=== PATIENT | male | born 1975 | race Caucasian/White ===

== ENCOUNTER 2019-01-24 10:06 | Emergency (ER) | payer OTHER ==
[~2019-01-24] VITALS: Ht 180.3 cm; Wt 122.7 kg
[2019-01-24 10:10] VITALS: Ht 180.3 cm; Wt 122.7 kg
[2019-01-24] MEDS ORDERED: [UNRECOGNIZED DRUG - REMARK] (10:11)
[2019-01-24] MEDS ORDERED: COZAAR25 MG (10:11)
[2019-01-24 10:49] LABS: ALBUMIN 4.1 g/dL (3.4-5.0); ALKALINE PHOSPHATASE 54 U/L (46-116); ALT (SGPT) 52 U/L (10-68); BILIRUBIN - TOTAL 0.35 mg/dL (0.2-1.3); CALC OSMOLALITY 279 mosm/kg (275-300); CALCIUM 9.2 mg/dL (8.5-10.1); CARBON DIOXIDE 25.7 mmol/L (21.0-32.0); CHLORIDE - SERUM 104 mmol/L (98-107); CREATININE - SERUM 0.8 mg/dL (0.6-1.3); GLUCOSE 109 mg/dL (74-106); POTASSIUM - SERUM 3.9 mmol/L (3.5-5.1); PROTEIN - SERUM 7.8 g/dL (6.4-8.2); SODIUM 139 mmol/L (136-145); UREA NITROGEN 14 mg/dL (7-18); eGFR NON AFRICAN AMERICAN > 90 mL/min (90-120)
[2019-01-24 10:51] LABS: BASOPHILS 0.3 % (0-2); EOSINOPHILS 2.3 % (0-7); HEMATOCRIT 48.3 % (42.0-54.0); HEMOGLOBIN 17.2 g/dL (13.5-17.5); IMMATURE GRANULOCYTES 0.4 % (0-5); LYMPHOCYTES 33.8 % (15-50); MCHC 35.6 g/dL (31.0-37.0); MCV 87.2 fL (80.0-100.0); MEAN PLATELET VOLUME 8.7 fL (7.4-10.4); MONOCYTES 7.5 % (2-11); NEUTROPHILS 55.7 % (40-80); PLATELET COUNT 242 10x3/uL (130-400); RBC 5.54 10x6/uL (4.20-6.10); WBC 10.2 10x3/uL (4.8-10.8)
[2019-01-24 11:01] LABS: CKMB 1.5 U/L (0.0-3.6); CREATINE KINASE 112 UL (21-232); MAGNESIUM - SERUM 1.9 mg/dL (1.8-2.4); TROPONIN-I < 0.017 ng/mL (0.000-0.060)
[2019-01-24 11:09] LABS: APTT 27.7 SECONDS (22.8-39.4); INR 1.04 (0.85-1.17); PROTIME 13.1 SECONDS (11.6-15.0)
[2019-01-24] MEDS ORDERED: TOPROL XL100 MG PO (12:52)
[2019-01-24 13:19] VITALS: BP 141/86
--- NOTE | 2019-01-26 10:39 | CN ---
PATIENT NAME:STEFANIE JHONSON MEDICAL RECORD: [id number] : 75 LOCATION:ER ADMIT DATE: ACCOUNT: [id number] CONSULTING PHYSICIAN: ANSELMO FLOWER MD REFERRING PHYSICIAN: CODY SAAB MD DATE OF CONSULTATION: 01/24/2019 DIAGNOSES: 1. Hypertension. 2. Chest pain. 3. Headache. 4. Shortness of breath. HISTORY OF PRESENT ILLNESS: Mr. Johnson has been followed by Dr. Johansen for hypertension. He had a normal stress test, but he continues to be markedly hypertensive. His systolic blood pressures in the 180, heart rate in the 100 range. He is on losartan and Procardia for blood pressure. PHYSICAL EXAMINATION: GENERAL APPEARANCE: Well-nourished, well-developed, appears stated age. Level of distress, comfortable. PSYCHIATRIC: Mental status, alert, normal affect. Orientation, oriented to time, place and person. EYES: Lids and conjunctiva, noninjected. No discharge, no pallor. ENT: Lips, teeth, gums, normal dentition. Oropharynx, no cyanosis, no pallor. NECK: Carotid arteries, bilateral normal upstroke, no bruits, no thrills. JUGULAR VEINS: No jugular venous pressure or distention. CERVICAL LYMPH NODES: Nontender, nonenlarged. THYROID: Not enlarged. Nontender. No nodules. LUNGS: Respiratory effort, unlabored. CHEST: Normal curvature. No thoracic deformity. No chest wall tenderness. Percussion, resonant. Auscultation, clear. No wheezes, no rales, no rhonchi. CARDIOVASCULAR: Precordial exam, nondisplaced. No heaves or pericardial thrills. Rate and rhythm, regular. Heart sounds, normal S1, normal S2. No S3, no gallop, no rub. Systolic murmur, not heard. Diastolic murmur, not heard. EXTREMITIES: No cyanosis, no edema. Peripheral pulses, full and equal in all extremities, except as noted. No bruits appreciated. ABDOMEN: Soft, nondistended. Normal aorta. No bruit. Nontender. No masses. Liver, nontender, no hepatomegaly. Spleen, nontender, no splenomegaly. MUSCULOSKELETAL: No joint tenderness. No joint swelling. No erythema. NEUROLOGICAL: Normal gait, normal strength, normal tone. SKIN: Warm and dry. His EKG is with no changes. IMPRESSION: At this time, we will give him a beta clary, Toprol 100 mg a day. Follow up with Dr. Johansen as previously scheduled. TRANSINT:[id number] Voice Confirmation ID: [id number] DOCUMENT ID: [id number] CONSULT REPORT [id number] ALEX,ANSELMO ODELL MD at 1039 CC: [id number] DICTATION DATE: 01/24/19 1244 ACQUISITION LEAD: 01/24/19 1423 DEP ER 01/24/19 [id number] [place] [address]
== END 2019-01-24 13:10 | disposition home or self-care (01) ==
LOC: D.ER 10:06
PROVIDERS: Family Medicine
DX: R07.9 Chest pain, unspecified (principal); I10 Essential (primary) hypertension

== ENCOUNTER 2019-01-31 10:46 | Outpatient (CLI) | payer OTHER ==
[~2019-01-31] VITALS: Ht 180.3 cm; Wt 77.3 kg
--- NOTE | ~2019-01-31 | OP ---
PATIENT NAME: STEFANIE JOHNSON MEDICAL RECORD: [id number] :75 LOCATION:D.CAT ADMISSION DATE: SURGEON: EVENS DENIS MD DATE OF OPERATION: 01/31/2019 PROCEDURES: Left heart catheterization, selective renal arteriogram. CATHETERS: A 5-Maltese sheath, 5/4 left and right Connor, 5/4 pig. The procedure was well tolerated. The patient returned to carey, sheath removed. ExoSeal device placed. FINDINGS: Left ventriculography in 30-degree DOWNING view: Normal wall motion, normal systolic function. CORONARY ANATOMY: LEFT MAIN: Left main is free of disease. LAD: Free of disease in the diagonal system. CIRCUMFLEX: Free of disease in the marginal system. RIGHT CORONARY ARTERY: Dominant artery, gives rise to PDA, free of disease. The catheters were withdrawn below the diaphragm. Selective renal arteriogram was performed. Left renal artery was selectively engaged. It shows smooth-walled vessel, free of disease. Right renal was then engaged selectively and this showed small vessel, free of disease with well visualized adrenal gland artery to the right adrenal without evidence of disease. IMPRESSION: Widely patent renal arteries. No evidence of renovascular hypertension, patent coronary arteries. TRANSINT:[id number] Voice Confirmation ID: [id number] DOCUMENT ID: [id number] EVENS DENIS MD CC: [id number] DICTATION DATE: 01/31/19 1345 PATTERN CHAIN BUILDER: 01/31/19 1416 [facility] [address] [id number]
--- NOTE | ~2019-01-31 | HEMODYNAMI ---
PATIENT:STEFANIE JOHNSON MEDICAL RECORD: [id number] : 75 LOCATION:CARLYLE ADMISSION DATE: 01/31/19 Generatedon:01/31/201913:37 Patient name: STEFANIE JOHNSON Patient #: [id number] SSN: : [id number] Date of study: 01/31/2019 Page: Of Hemodynamic Procedure Report Patient Data Patient Demographics Procedure consent was obtained First Name: STEFANIE Gender: Male Last Name: ALEX : 1975 [facility] Initial: J Age: 43 year(s) Patient #: [id number] Race: Unknown Additional ID: [id number] Contact details [address]: [address] [place] [address] [address] State: [place] City: [place] Zip code: [address] Past Medical History Allergies Allergen Reaction Date Comments Reported Other allergy 01/31/2019 PCN Admission Admission Data Admission Date: 01/31/2019 Admission Time: 10:46 Admit Source: Other Lab Results Lab Result Date: 01/31/2019 Lab Result Time: 11:15 Biochemistry Name Units Result Min Max BUN mg/dl 12 --(-*--)-- 7 18 Creatinine mg/dl 0.9 --(-*--)-- 0.6 1.3 CBC Name Units Result Min Max Hematocrit % 46.7 --(-*--)-- 42 54 Hemoglobin g/dl 16.7 --(---*)-- 13.5 17.5 Procedure Procedure Types Cath Procedure Diagnostic Procedure LHC LHC w/Coronaries Peripheral Cath Diagnostic Procedure Head Resident Peripheral Procedures Renal Arteriogram Procedure Description Procedure Date Procedure Date: 01/31/2019 Procedure Start Time: 13:22 Procedure End Time: 13:35 Procedure Staff Name Function Pankaj Harman MD Performing Physician Mayco Peralta RT Monitor Suzan Carcamo RT Scrub Yessica Hall RN Nurse Procedure Data Cath Procedure Fluoroscopy Diagnostic fluoroscopy Total fluoroscopy Time: 2.8 time: 2.8 min min Diagnostic fluoroscopy Total fluoroscopy dose: dose: 1036 mGy 1036 mGy Contrast Material Contrast Material Type Amount (ml) Isovue 300 101 Entry Location Entry Primary Successful Side Size Upsize Upsize Entry Closure Succes sful Closure Location (Fr) 1 (Fr) 2 (Fr) Remarks Device Remarks Femoral Right 5 Fr artery Femoral Right 5 Fr artery Estimated blood loss: 5 ml Diagnostic catheters Device Type Used For End Catheter Placement MULTIPACK JL 4.0 5Fr Procedure catheter MULTIPACK 3DRC 5Fr Procedure catheter MULTIPACK Pigtail 5 Fr Procedure catheter Procedure Complications No complications Procedure Medications Medication Administration Route Dosage Oxygen etCO2 Nasal cannula 2 l/min Lidocaine 2% added to field 20 Heparin Flush Bag added to field 2 bags (1000units/500ml NS) Versed I.V. 2 mg Fentanyl I.V. 100 mcg Versed I.V. 2 mg Fentanyl I.V. 100 mcg Versed I.V. 2 mg Fentanyl I.V. 100 mcg Hemodynamics Rest HGB: 16.7 (g/dl) Heart Rate: 101 (bpm) Pressure Samples Time Site Value (mmHg) Purpose Heart Use Rate(bpm) 13:23 AO 81/69(76) Snapshot 100 13:30 LV 104/2,3 Snapshot 100 Gradients Valve Time Site Site Mean SEP/DFP Peak To Heart Use 1 2 (mmHg) (sec/min) Peak Rate (mmHg) (bpm) Aortic 13:30 LV AO 102 Snapshots Pre Cath Intra NCS Post Cath Vital Signs Time Heart Resp SPO2 etCO2 NIBP (mmHg) Rhythm Pain Sedation Rate (ipm) (%) (mmHg) Status Level (bpm) 13:16:51 112 13 97 37.4 No Cuff NSR 0 (11) 10(A) , No pain 13:20:43 103 18 95 31.4 124/74(0) NSR 0 (11) 10(A) , No pain 13:25:05 98 13 94 37.4 114/86(99) NSR 0 (11) 10(A) , No pain 13:29:27 101 19 95 38.9 131/68(96) NSR 0 (11) 10(A) , No pain 13:33:53 97 16 96 38.1 135/80(105) NSR 0 (11) 10(A) , No pain Medications Time Medication Route Dose Verified Delivered Reason Notes Eff ectiveness by by 13:19:29 Oxygen etCO2 2 Pankaj Juan used for Nasal l/min [facility] insurance administrator cannula 13:19:36 Lidocaine 2% added 20ml Pankaj Pankaj for local to vial [facility] anesthetic field MD CORBETT 13:19:42 Heparin Flush added 2 Pankaj Pankaj used for Bag to bags [facility] procedure (1000units/500ml field MD CORBETT NS) 13:21:45 Versed I.V. 2 mg Pankaj Buffie for Ghazal Hall RN sedation 13:21:51 Fentanyl I.V. 100 Pankaj Buffie for [facility] Ghazal Hall RN sedation 13:26:48 Versed I.V. 2 mg Pankaj Buffie for Ghazal Hall RN sedation 13:26:51 Fentanyl I.V. 100 Pankaj Buffie for mcg Ghazal Hall RN sedation 13:30:34 Versed I.V. 2 mg Pankaj Buffie for [facility] RN sedation 13:30:38 Fentanyl I.V. 100 Pankaj Buffie for [facility] Hall RN sedation Procedure Log Time Note 13:01:44 Informed consent obtained and on chart 13:01:48 Admit Source: Other 13:02:00 Diagnostic Cath status Elective 13:02:02 Suzan Carcamo RT(R) sent for patient. Start room use. 13:02:54 Procedure type changed to Cath procedure, Diagnostic procedure, LHC, LHC w/Coronaries, Peripheral Cath Diagnostic Procedure, Head Resident Peripheral Procedures, Renal Arteriogram 13:02:56 Time tracking: Regular hours (M-F 7:00 - 5:00) 13:02:59 Plan of Care:Hemodynamics will remain stable., Cardiac rhythm will remain stable., Comfort level will be maintained., Respiratory function will remain adequate., Patient/ family verbilizes understanding of procedure., Procedure tolerated without complication., Recovers from procedure without complications.. 13:04:53 Lab Result : BUN 12 mg/dl 13:04:53 Lab Result : Hemoglobin 16.7 g/dl 13:04:53 Lab Result : Creatinine 0.9 mg/dl 13:04:53 Lab Result : Hematocrit 46.7 % 13:04:55 Lab results completed and on chart. 13:06:19 Patient received from Pre/Post Procedure Room to [facility] 1 Alert and oriented. Tansferred to table in Supine position. 13:06:20 Warm blankets applied, and vinicio hugger turned on for patient comfort. 13:06:26 Correct patient and procedure confirmed by team. 13:06:28 ECG and BP/O2 sat monitors applied to patient. 13:06:32 Pre-procedure instructions explained to patient. 13:06:33 Pre-op teaching completed and patient verbalized understanding. 13:06:34 Family in waiting room. 13:06:36 Patient NPO since Breakfast. 13:06:49 Patient allergic to Other allergyPCN 13:16:01 Vital chart was started 13:19:08 Baseline sample Acquired. 13:19:13 Rhythm: sinus tachycardia 13:19:19 Full Disclosure recording started 13:19:29 Oxygen 2 l/min etCO2 Nasal cannula was administered by Yessica Hall RN; used for procedure; 13:19:29 H&P Date Dictated: 01/27/2019 Within 30 days and on chart., H&P Addendum completed by physician on day of procedure. (MUST COMPLETE FOR ALL OUTPATIENTS). 13:19:32 Is the patient allergic to Iodine/contrast media? No. 13:19:34 Is patient on blood thinner?No 13:19:35 Patient diabetic? No. 13:19:36 Lidocaine 2% 20ml vial added to field was administered by Pankaj Harman MD; for local anesthetic; 13:19:37 Previous problem with sedation/anesthesia? No ? 13:19:38 Snore? Yes 13:19:38 Sleep apnea? Yes 13:19:40 Deviated septum? No 13:19:41 Opens mouth fully? Yes 13:19:42 Heparin Flush Bag (1000units/500ml NS) 2 bags added to field was administered by Pankaj Harman MD; used for procedure; 13:19:42 Sticks out tongue? Yes 13:19:44 Sticks out tongue? Yes 13:20:00 Airway obstruction? No ? 13:20:06 Dentures? No ? 13:20:21 Pre procedure: right dorsailis pedis pulse 2+ Normal; easily identifiable; not easily obliterated 13:20:24 Patient pain scale 0/10 ?. 13:20:30 IV patent on arrival in left forearm with 0.9% NaCl at [facility]. 13:20:35 Right groin area was prepped with chlora-prep and draped in sterile fashion 13:20:37 Alarms reviewed by R. N. 13:20:37 Sharps counted by scrub and verified by R.N. 13:20:46 Physician arrived 13:20:48 --------ALL STOP TIME OUT------ 13:20:49 Final Timeout: patient, procedure, and site verified with staff and physician. All members of the team are in agreement. 13:20:56 Right groin site verified by team. 13:21:03 Maximum allowable Isovue 300 dose 300ml. Physician notified. (300ml for normal creatinines. For patients with creatinine of 1.7 or higher multiply weight(kg) x 5 divided by creatinine.) 13:21:09 Fire Safety Assessment: A--An alcohol-based skin anteseptic being used preoperatively., C--Open oxygen or nitrous oxide is being used., D--An ESU, laser, or fiber-optic light is being used. 13:21:17 Physical assessment completed. ASA score P 2 - A patient with mild systemic disease as per Pankaj Harman MD. 13:21:24 Sedation plan: IV Moderate Sedation Medication:Versed, Fentanyl 13:21:45 Versed 2 mg I.V. was administered by Yessica Hall RN; for sedation; 13:21:51 Fentanyl 100 mcg I.V. was administered by Yessica Hall RN; for sedation; 13:22:06 Procedure started. 13:22:15 Local anesthetic to right femoral artery with Lidocaine 2% by Pankaj Harman MD.INITIAL ACCESS ONLY 13:22:33 A 5 Fr sheath was inserted into the Right Femoral artery 13:22:41 Use device set Femoral Dx 13:22:43 ACIST Syringe (05948) opened to sterile field. 13:22:44 Bag Decanter () opened to sterile field. 13:22:44 Medline Cath Pack ([id number]) opened to sterile field. 13:22:46 DIAGNOSTIC WIRE .035 260cm J wire ([id number]) opened to sterile field. 13:22:48 ACIST Hand Control (23133) opened to sterile field. 13:22:48 ACIST Manifold (03367) opened to sterile field. 13:22:49 DIAGNOSTIC Multipack 5Fr catheter set ([id number]) opened to sterile field. 13:22:50 Tegaderm 4 x 4 (1626W) opened to sterile field. 13:22:52 SHEATH 5FR [place] (PSA818) opened to sterile field. 13:23:01 A MULTIPACK JL 4.0 5Fr catheter was advanced over the wire and used for Procedure. 13:23:11 Zero performed for pressure channel P1 13:23:43 LCA angiography performed. 13:25:11 Catheter exchanged over wire. 13:25:18 A MULTIPACK 3DRC 5Fr catheter was advanced over the wire and used for Procedure. 13:26:10 RCA angiography performed. 13:26:48 Versed 2 mg I.V. was administered by Yessica Hall RN; for sedation; 13:26:51 Fentanyl 100 mcg I.V. was administered by Yessica Hall RN; for sedation; 13:27:08 Right renal angiography performed. 13:28:11 Left renal angiography performed. 13:29:05 Catheter exchanged over wire. 13:29:09 A MULTIPACK Pigtail 5 Fr catheter was advanced over the wire and used for Procedure. 13:29:11 EXOSEAL 5Fr (EX500) opened to sterile field. 13:30:19 LV gram done using DOWNING 13:30:21 Injector settings: Ml/sec: 10, Volume: 20, 13:30:23 LV hemodynamics recorded. 13:30:27 EF : 60 % 13:30:34 Versed 2 mg I.V. was administered by Yessica Hall RN; for sedation; 13:30:38 Fentanyl 100 mcg I.V. was administered by Yessica Hall RN; for sedation; 13:30:54 Catheter removed. 13:31:33 A 5 Fr sheath was inserted into the Right Femoral artery 13:31:34 Procedure ended.(Physican Out) 13:32:43 Fluoroscopy time 02.80 minutes. 13:32:48 Fluoroscopy dose: 1036 mGy 13:32:48 Flurop Dose total: 1036 13:32:53 Contrast amount:Isovue 300 101ml. 13:32:54 Sharps counted by scrub and verified by R.N. 13:32:55 Insertion/operative site no bleeding no hematoma. 13:32:59 Post-op/insertion site Right Femoral artery dressed using a 4 x 4 and Tegaderm. 13:33:04 Post right femoral artery:stable, soft, clean and dry 13:33:47 Post Procedure Pulses reassessed and unchanged 13:34:20 Post-procedure physical assessment completed. ASA score P 2 - A patient with mild systemic disease as per Pankaj Harman MD. 13:34:22 Post procedure rhythm: unchanged. 13:34:24 Estimated blood loss: 5 ml 13:34:25 Post procedure instruction explained to patient.Patient verbalizes understanding. 13:34:26 Patient needs reinforcement of post procedure teaching. 13:34:53 Procedure and supply charges have been captured, reviewed, submitted and are correct. 13:34:56 Procedure Complication : No complications 13:34:58 Vital chart was stopped 13:34:58 See physician's report for complete and final results. 13:35:00 Report given to Pre/Post Procedure Room. 13:35:03 Patient transfered to Pre/Post Procedure Room with Stretcher. 13:35:09 Procedure ended. 13:35:09 Full Disclosure recording stopped 13:35:15 End room use (Document Last) Device Usage Item Name Manufacture Quantity Catalog Hospital Part Current Minimal L ot# / Number Charge Number Stock Stock Serial# Code ACIST Acist 1 31139 421615 110037 971095 20 Syringe Medical (74555) Systems Inc Bag Microtek 1 2001S 273479 02354 090748 5 Decanter Medical Inc. () Medline Medline 1 [id number] 331730 51271 358642 5 Cath Pack ([id number]) DIAGNOSTIC [facility] Octav[place] 1 205530 713285 216173 757869 30 WIRE .035 260cm J wire (923049) ACIST Hand Acist 1 61176 770280 545346 087415 5 Control Medical (32917) Systems Inc ACIST Acist 1 39742 711328 185194 531365 5 Manifold Medical (57393) Systems Inc DIAGNOSTIC Cardinal 1 [id number] 565034 01354 268611 30 Multipack Health 5Fr catheter set (KI6467) Tegaderm 4 3M 1 1626W 468537 897067 821902 5 x 4 (1626W) SHEATH 5FR Terumo 1 SGV970 515989 550552 309312 5 [place] (ICC257) MULTIPACK Cardinal 1 578278 5 JL 4.0 5Fr Health catheter MULTIPACK Cardinal 1 123266 5 3DRC 5Fr Health catheter MULTIPACK Cardinal 1 947135 5 Pigtail 5 Health Fr catheter EXOSEAL 5Fr Cardinal 1 EX500 966124 015569 599936 10 (EX500) Health Signature Audit [place] Stage Time Signature Unsigned Intra-Procedure 01/31/2019 Mayco Peralta 1:37:16 PM RT(R) Signatures Monitor : Mayco Peralta RT Signature : Date : Time : [id number] [place] [address]
[~2019-01-31 10:46] MED LIST: COZAAR25 MG; TOPROL XL100 MG PO; [UNRECOGNIZED DRUG - REMARK]
[2019-01-31] MEDS ORDERED: BUPRENORPHINE HC8 MG SL (11:01)
[2019-01-31] MEDS ORDERED: COZAAR100 MG PO (11:01)
[2019-01-31] MEDS ORDERED: HYDRALAZINE HCL50 MG PO (11:02)
[2019-01-31] MEDS ORDERED: ADALAT CC90 MG PO (11:04)
[2019-01-31 11:11] VITALS: BP 149/98; Ht 180.3 cm; Wt 77.3 kg
[2019-01-31 11:26] LABS: BASOPHILS 0.2 % (0-2); EOSINOPHILS 1.1 % (0-7); HEMATOCRIT 46.7 % (42.0-54.0); HEMOGLOBIN 16.7 g/dL (13.5-17.5); IMMATURE GRANULOCYTES 0.6 % (0-5); LYMPHOCYTES 27.6 % (15-50); MCHC 35.8 g/dL (31.0-37.0); MCV 86.8 fL (80.0-100.0); MEAN PLATELET VOLUME 8.6 fL (7.4-10.4); MONOCYTES 6.4 % (2-11); NEUTROPHILS 64.1 % (40-80); PLATELET COUNT 282 10x3/uL (130-400); RBC 5.38 10x6/uL (4.20-6.10); RDW 13.1 % (11.5-14.5)
[2019-01-31 11:40] LABS: CALC OSMOLALITY 275 mosm/kg (275-300); CALCIUM 9.2 mg/dL (8.5-10.1); CARBON DIOXIDE 25.8 mmol/L (21.0-32.0); CHLORIDE - SERUM 102 mmol/L (98-107); CREATININE - SERUM 0.9 mg/dL (0.6-1.3); GLUCOSE 96 mg/dL (74-106); POTASSIUM - SERUM 3.5 mmol/L (3.5-5.1); SODIUM 138 mmol/L (136-145); UREA NITROGEN 12 mg/dL (7-18); eGFR NON AFRICAN AMERICAN > 90 mL/min (90-120)
--- NOTE | 2019-01-31 13:45 | NUR ---
PATIENT ARRIVED TO GLASS FRAME FITTER HOLDING ROOM 5, PATIENT AWAKE AND ALERT, VSS ON 2L NC. WILL CONTINUE TO MONITOR.
[2019-01-31] MEDS ORDERED: ZIAC 10-6.25 MG1 TAB PO (13:55)
--- NOTE | 2019-01-31 13:59 | NUR ---
PATIENT INTERMITTENTLY RESTING, VSS ON 2L NC. RIGHT GROIN DRESSING IS CDI, NO S/S OF BLEEDING OR HEMATOMA. NO C/O PAIN, NUMBNESS, OR TINGLING. PHYSICIAN AT BEDSIDE TO UPDATE PATIENT.
--- NOTE | 2019-01-31 14:30 | NUR ---
PATIENT AWAKE, HEAD OF BED AT 45 DEGREES. RIGHT GROIN DRESSING IS CDI, NO S/S OF BLEEDING OR HEMATOMA. NO C/O PAIN,NUMBNESS, OR TINGLING. PATIENT GIVEN SANDWICH AND SPRITE, NO N/V. VSS ON 1L NC.
--- NOTE | 2019-01-31 15:00 | NUR ---
HEAD OF BED AT 90 DEGREES, RIGHT GROIN DRESSING IS CDI, NO S/S OF BLEEDING OR HEMATOMA. NO C/O PAIN, NUMBNESS, OR TINGLING. PATIENT STATES CONCERN OVER MEDICATIONS, EXPLANATION AND INSTRUCTIONS GIVEN TO REINFORCE PHYSICIAN RECOMMENDATIONS AND PRESCRIPTIONS - PATIENT AND FAMILY STATE UNDERSTANDING; BOTH STATE COMFORT WITH PRESCRIBED MEDICATIONS AND FOLLOW UP APPOINTMENT WITH PHYSICIAN IN 2 WEEKS. VSS ON ROOM AIR. PATIENT TOLERATING PO FLUIDS AND FOOD, NO N/V. PRESCRIPTION CALLED IN TO PHARMACY PER PATIENT REQUEST.
--- NOTE | 2019-01-31 15:15 | NUR ---
IV REMOVED, RIGHT GROIN DRESSING IS CDI, NO S/S OF BLEEDING OR HEMATOMA. PATIENT GETTING DRESSED AT THIS TIME.
--- NOTE | 2019-01-31 15:30 | NUR ---
EDUCATION REGARDING DISCHARGE INSTRUCTIONS AND MEDICATION COMPLIANCE GIVEN TO PATIENT AND FAMILY MEMBER, BOTH VOICE UNDERSTANDING. PATIENT TRANSPORTED VIA WHEELCHAIR TO CAR WITH FAMILY DRIVING, ALL BELONGINGS WITH PATIENT.
== END 2019-01-31 15:30 ==
LOC: D.CATH 10:46
PROVIDERS: ATTEND Internal Medicine Interventional Cardiology
DX: I20.9 Angina pectoris, unspecified (principal); I10 Essential (primary) hypertension; Z01.812 Encounter for preprocedural laboratory examination

== ENCOUNTER 2019-09-02 06:49 | Day surgery (SDC) | payer OTHER ==
[~2019-09-02] VITALS: Ht 180.3 cm; Wt 122.9 kg
[~2019-09-02 06:49] MED LIST changes: +ADALAT CC90 MG PO; +BUPRENORPHINE HC8 MG SL; +COZAAR100 MG PO; +DIOVAN80 MG PO; +HYDRALAZINE HCL50 MG PO; +ZIAC 10-6.25 MG1 TAB PO
[2019-09-02 07:24] LABS: CALC OSMOLALITY 279 mosm/kg (275-300); CALCIUM 9.3 mg/dL (8.5-10.1); CARBON DIOXIDE 30.4 mmol/L (21.0-32.0); CHLORIDE - SERUM 103 mmol/L (98-107); CREATININE - SERUM 0.9 mg/dL (0.6-1.3); GLUCOSE 108 mg/dL (74-106); POTASSIUM - SERUM 4.5 mmol/L (3.5-5.1); SODIUM 139 mmol/L (136-145); UREA NITROGEN 15 mg/dL (7-18); eGFR NON AFRICAN AMERICAN > 90 mL/min (90-120)
[2019-09-02 08:40] LABS: BASOPHILS 0.4 % (0-2); EOSINOPHILS 6.5 % (0-7); HEMATOCRIT 50.7 % (42.0-54.0); HEMOGLOBIN 17.6 g/dL (13.5-17.5); IMMATURE GRANULOCYTES 0.4 % (0-5); LYMPHOCYTES 33.5 % (15-50); MCH 31.1 pg (26.0-34.0); MCHC 34.7 g/dL (31.0-37.0); MCV 89.6 fL (80.0-100.0); MONOCYTES 8.5 % (2-11); NEUTROPHILS 50.7 % (40-80); PLATELET COUNT 265 10x3/uL (130-400); RBC 5.66 10x6/uL (4.20-6.10); WBC 11.2 10x3/uL (4.8-10.8)
[2019-09-02] MEDS ORDERED: VOLTAREN25 MG PO (09:15)
[2019-09-02] MEDS ORDERED: ZIAC 10-6.25 MG1 TAB PO (09:16)
[2019-09-02 09:19] VITALS: BP 136/75; Ht 180.3 cm; Wt 122.9 kg
[2019-09-02] MEDS ORDERED: HYDROCODON-ACE1 EA10 PO (11:52)
--- NOTE | 2019-09-06 13:36 | OP ---
PATIENT NAME: STEFANIE JOHNSON MEDICAL RECORD: [id number] :75 LOCATION:D.OPS ADMISSION DATE: SURGEON: ELIECER TRAN MD DATE OF OPERATION: 09/02/2019 PREOPERATIVE DIAGNOSES: 1. Ventral hernia. 2. Hypertension. 3. Hypercholesterolemia. POSTOPERATIVE DIAGNOSES: 1. Ventral hernia. 2. Hypertension. 3. Hypercholesterolemia. PROCEDURE: Ventral hernia repair with 4.[address] mesh. SURGEON: Eliecer Tran MD REPORT OF PROCEDURE: The patient's abdomen was prepped and draped in sterile fashion. A semicircular incision was made on the inferior aspect of the umbilicus. Electrocautery was used to dissect through the subcutaneous tissues. We elevated the umbilicus, and just above the umbilicus we found a small hernia defect. This hernia defect was freed up and we were able to transect the hernia sac and remove it down at the fascial edges. We then released some of the fatty tissue off of the fascia anteriorly using electrocautery and then pushed the posterior fascial layer clear using blunt dissection. The hernia defect was approximately 2 cm in greatest diameter. We elected to place a 4.[address] mesh in an underlay fashion. This was sutured into place with 0 Prolenes on all 4 sides. We then irrigated out the wound and closed the fascia transversely overlying the mesh using running 0 Vicryl. The umbilicus was tacked down to the fascia using a single interrupted 3-0 Vicryl and the subcutaneous tissues were reapproximated with interrupted 3-0 Vicryls. A 10 mL of 0.25% Marcaine plain was infused into the surrounding tissues and the skin incision was closed with running subcutaneous 5-0 Monocryl. The wound was then dressed appropriately. COMPLICATIONS: None. CONDITION: Stable. ANESTHESIA: General endotracheal and local. BLOOD LOSS: Minimal. TRANSINT:[id number] Voice Confirmation ID: [id number] DOCUMENT ID: [id number] ELEICER TRAN MD at 1336 CC: RAJAT GOLDBERG DO [id number] DICTATION DATE: 09/02/19 1158 FIELD SERVICE TECHNICIAN: 09/02/19 1615 [facility] 09/02/19 [place] [address]
== END 2019-09-02 14:20 | disposition home or self-care (01) ==
LOC: D.OPS 06:49 → D.PAN 10:30 → D.OPS 10:30
PROVIDERS: ATTEND Surgery
DX: K43.9 Ventral hernia without obstruction or gangrene (principal); I10 Essential (primary) hypertension; E78.00 Pure hypercholesterolemia, unspecified

== ENCOUNTER 2019-10-20 16:05 | Observation (INO) | payer OTHER ==
[~2019-10-20] VITALS: Ht 180.3 cm; Wt 120.2 kg
[~2019-10-20 16:05] MED LIST changes: +HYDROCODON-ACE1 EA10 PO; +VOLTAREN25 MG PO
[2019-10-20 16:39] LABS: BASOPHILS 0.3 % (0-2); EOSINOPHILS 2.6 % (0-7); HEMATOCRIT 52.3 % (42.0-54.0); HEMOGLOBIN 18.5 g/dL (13.5-17.5); IMMATURE GRANULOCYTES 0.4 % (0-5); LYMPHOCYTES 31.1 % (15-50); MCH 32.3 pg (26.0-34.0); MCHC 35.4 g/dL (31.0-37.0); MCV 91.3 fL (80.0-100.0); MEAN PLATELET VOLUME 8.8 fL (7.4-10.4); MONOCYTES 8.3 % (2-11); NEUTROPHILS 57.3 % (40-80); PLATELET COUNT 235 10x3/uL (130-400); RBC 5.73 10x6/uL (4.20-6.10); RDW 13.6 % (11.5-14.5); WBC 11.9 10x3/uL (4.8-10.8)
[2019-10-20 16:45] LABS: CALC OSMOLALITY 277 mosm/kg (275-300); CALCIUM 9.2 mg/dL (8.5-10.1); CARBON DIOXIDE 29.7 mmol/L (21.0-32.0); CHLORIDE - SERUM 100 mmol/L (98-107); GLUCOSE 100 mg/dL (74-106); POTASSIUM - SERUM 4.2 mmol/L (3.5-5.1); SODIUM 138 mmol/L (136-145); UREA NITROGEN 19 mg/dL (7-18); eGFR NON AFRICAN AMERICAN 86 mL/min (90-120)
[2019-10-20 16:46] LABS: APTT 28.2 SECONDS (22.8-39.4); INR 1.02 (0.85-1.17); PROTIME 13.3 SECONDS (11.6-15.0)
[2019-10-20 17:03] LABS: ALBUMIN 4.3 g/dL (3.4-5.0); ALKALINE PHOSPHATASE 48 U/L (46-116); ALT (SGPT) 54 U/L (10-68); CKMB 2.4 U/L (0.0-3.6); CREATINE KINASE 168 UL (21-232); MAGNESIUM - SERUM 2.1 mg/dL (1.8-2.4); PROTEIN - SERUM 7.9 g/dL (6.4-8.2); TROPONIN-I < 0.017 ng/mL (0.000-0.060)
[2019-10-20 18:53] VITALS: BP 123/72
--- NOTE | 2019-10-20 18:54 | NUR ---
PATIENT DENIES CHEST PAIN AT THIS TIME, DISCUSSED NITRO WAS ON ORDER IF NEEDED, HE VERBALIZED UNDERSTANDING, STATED HE DIDN'T NEED ANY AT THIS TIME.
--- NOTE | 2019-10-20 19:32 | NUR ---
PT CT VIA W/C PER TECH
[2019-10-21 00:16] VITALS: BP 126/69; Ht 180.3 cm; Wt 120.2 kg
--- NOTE | 2019-10-21 02:13 | NUR ---
PATIENT RESTING COMFORTABLY IN BED. RESPIRATIONS ARE EVEN AND UNLABORED. NO S/S OF DISTRESS. NO C/OPAIN. CALL LIGHT WITHIN REACH. WILL CPOC
[2019-10-21 04:30] VITALS: BP 119/70
[2019-10-21 05:14] LABS: BASOPHILS 0.2 % (0-2); EOSINOPHILS 5.3 % (0-7); HEMATOCRIT 51.3 % (42.0-54.0); HEMOGLOBIN 17.6 g/dL (13.5-17.5); IMMATURE GRANULOCYTES 0.5 % (0-5); LYMPHOCYTES 39.3 % (15-50); MCH 31.7 pg (26.0-34.0); MCHC 34.3 g/dL (31.0-37.0); MCV 92.4 fL (80.0-100.0); MEAN PLATELET VOLUME 8.9 fL (7.4-10.4); MONOCYTES 10.3 % (2-11); NEUTROPHILS 44.4 % (40-80); PLATELET COUNT 240 10x3/uL (130-400); RBC 5.55 10x6/uL (4.20-6.10); RDW 13.9 % (11.5-14.5); WBC 12.3 10x3/uL (4.8-10.8)
[2019-10-21 05:27] LABS: INR 1.11 (0.85-1.17); PROTIME 14.3 SECONDS (11.6-15.0)
[2019-10-21 05:31] LABS: ALBUMIN 3.5 g/dL (3.4-5.0); ALKALINE PHOSPHATASE 43 U/L (46-116); ALT (SGPT) 46 U/L (10-68); BILIRUBIN - TOTAL 0.35 mg/dL (0.2-1.3); CALC OSMOLALITY 280 mosm/kg (275-300); CALCIUM 8.6 mg/dL (8.5-10.1); CARBON DIOXIDE 28.4 mmol/L (21.0-32.0); CHLORIDE - SERUM 105 mmol/L (98-107); CREATININE - SERUM 1.1 mg/dL (0.6-1.3); GLUCOSE 96 mg/dL (74-106); MAGNESIUM - SERUM 2.2 mg/dL (1.8-2.4); PHOSPHOROUS 3.7 mg/dL (2.5-4.9); POTASSIUM - SERUM 4.2 mmol/L (3.5-5.1); PROTEIN - SERUM 6.8 g/dL (6.4-8.2); SODIUM 140 mmol/L (136-145); UREA NITROGEN 17 mg/dL (7-18); eGFR NON AFRICAN AMERICAN 77 mL/min (90-120)
[2019-10-21 08:05] LABS: APPEARANCE CLEAR (CLEAR); BILIRUBIN NEGATIVE (NEGATIVE); COLOR YELLOW (YELLOW); GLUCOSE NEGATIVE (NEGATIVE); KETONE NEGATIVE (NEGATIVE); NITRITE NEGATIVE (NEGATIVE); PROTEIN NEGATIVE (NEGATIVE); SPECIFIC GRAVITY 1.015 (1.005-1.020); UROBILINOGEN NORMAL (NORMAL)
[2019-10-21 12:01] VITALS: BP 130/75
[2019-10-21 14:18] VITALS: BP 130/78
[2019-10-21] MEDS ORDERED: ELIQUIS5 MG PO (14:29)
--- NOTE | 2019-10-21 15:39 | NUR ---
IV AND TELEMETRY DCD. DC PLANS GIVEN. UNDERSTANDING VOICED.
[2019-10-26 21:06] LABS: META PL - METANEPHRINE <10 pg/mL (0-62); META PL - NORMETANEPHRINE 14 pg/mL (0-145)
== END 2019-10-21 15:39 | disposition home or self-care (01) ==
LOC: D.ER 16:05 → D.M2 20:52 → OBSVTIME 20:52 → D.M2 10-21 15:39
PROVIDERS: Emergency Medicine; Family Medicine; ADMIT Family Medicine; ATTEND Family Medicine
DX: I26.99 Other pulmonary embolism without acute cor pulmonale (principal); I10 Essential (primary) hypertension; M19.90 Unspecified osteoarthritis, unspecified site; G89.29 Other chronic pain; E78.5 Hyperlipidemia, unspecified; F11.20 Opioid dependence, uncomplicated

== ENCOUNTER 2019-10-23 17:02 | Emergency (ER) | payer OTHER ==
[~2019-10-23 17:02] MED LIST changes: +ELIQUIS5 MG PO
[2019-10-23 17:04] VITALS: Ht 180.3 cm
[2019-10-23 17:28] LABS: BASOPHILS 0.3 % (0-2); HEMATOCRIT 51.4 % (42.0-54.0); HEMOGLOBIN 17.9 g/dL (13.5-17.5); IMMATURE GRANULOCYTES 0.4 % (0-5); LYMPHOCYTES 20.1 % (15-50); MCH 31.7 pg (26.0-34.0); MCHC 34.8 g/dL (31.0-37.0); MEAN PLATELET VOLUME 8.9 fL (7.4-10.4); MONOCYTES 6.8 % (2-11); NEUTROPHILS 71.4 % (40-80); PLATELET COUNT 254 10x3/uL (130-400); RBC 5.65 10x6/uL (4.20-6.10); RDW 13.5 % (11.5-14.5); WBC 11.8 10x3/uL (4.8-10.8)
[2019-10-23 17:40] LABS: CALC OSMOLALITY 277 mosm/kg (275-300); CALCIUM 8.8 mg/dL (8.5-10.1); CARBON DIOXIDE 26.1 mmol/L (21.0-32.0); CHLORIDE - SERUM 102 mmol/L (98-107); CREATININE - SERUM 0.9 mg/dL (0.6-1.3); GLUCOSE 133 mg/dL (74-106); POTASSIUM - SERUM 3.8 mmol/L (3.5-5.1); SODIUM 137 mmol/L (136-145); UREA NITROGEN 17 mg/dL (7-18); eGFR NON AFRICAN AMERICAN > 90 mL/min (90-120)
[2019-10-23 17:56] LABS: ALBUMIN 4.2 g/dL (3.4-5.0); ALKALINE PHOSPHATASE 47 U/L (30-120); ALT (SGPT) 139 U/L (10-68); BILIRUBIN - TOTAL 0.45 mg/dL (0.2-1.3); CKMB 2.9 U/L (0.0-3.6); CREATINE KINASE 348 UL (21-232); PRO BNP 31 pg/mL (0-125); PROTEIN - SERUM 7.7 g/dL (6.4-8.2); TROPONIN-I < 0.017 ng/mL (0.000-0.060)
[2019-10-23 18:50] VITALS: BP 122/79
== END 2019-10-23 18:50 | disposition home or self-care (01) ==
LOC: D.ER 17:02
PROVIDERS: Family Medicine
DX: I26.99 Other pulmonary embolism without acute cor pulmonale (principal); R94.5 Abnormal results of liver function studies; I10 Essential (primary) hypertension; Z95.5 Presence of coronary angioplasty implant and graft; M54.9 Dorsalgia, unspecified

== ENCOUNTER 2019-11-30 15:55 | Emergency (ER) | payer OTHER ==
[~2019-11-30] VITALS: Ht 180.3 cm; Wt 119.5 kg
[2019-11-30 16:17] VITALS: Ht 180.3 cm; Wt 119.5 kg
[2019-11-30 16:44] LABS: BASOPHILS 0.3 % (0-2); EOSINOPHILS 4.2 % (0-7); HEMATOCRIT 49.5 % (42.0-54.0); HEMOGLOBIN 17.5 g/dL (13.5-17.5); IMMATURE GRANULOCYTES 0.3 % (0-5); LYMPHOCYTES 31.7 % (15-50); MCH 31.4 pg (26.0-34.0); MCHC 35.4 g/dL (31.0-37.0); MCV 88.7 fL (80.0-100.0); MEAN PLATELET VOLUME 8.5 fL (7.4-10.4); MONOCYTES 7.6 % (2-11); NEUTROPHILS 55.9 % (40-80); PLATELET COUNT 221 10x3/uL (130-400); RBC 5.58 10x6/uL (4.20-6.10); RDW 12.2 % (11.5-14.5); WBC 11.8 10x3/uL (4.8-10.8)
[2019-11-30 16:51] LABS: APTT 29.7 SECONDS (22.8-39.4); INR 1.02 (0.85-1.17); PROTIME 13.4 SECONDS (11.6-15.0)
[2019-11-30 16:53] LABS: CALC OSMOLALITY 276 mosm/kg (275-300); CALCIUM 9.6 mg/dL (8.5-10.1); CARBON DIOXIDE 30.1 mmol/L (21.0-32.0); CHLORIDE - SERUM 102 mmol/L (98-107); CREATININE - SERUM 0.9 mg/dL (0.6-1.3); GLUCOSE 89 mg/dL (74-106); POTASSIUM - SERUM 4.4 mmol/L (3.5-5.1); SODIUM 138 mmol/L (136-145); UREA NITROGEN 18 mg/dL (7-18); eGFR NON AFRICAN AMERICAN > 90 mL/min (90-120)
[2019-11-30 17:23] LABS: ALBUMIN 4.3 g/dL (3.4-5.0); ALKALINE PHOSPHATASE 53 U/L (30-120); ALT (SGPT) 47 U/L (10-68); BILIRUBIN - TOTAL 0.22 mg/dL (0.2-1.3); CREATINE KINASE 103 UL (21-232); MAGNESIUM - SERUM 2.2 mg/dL (1.8-2.4); PROTEIN - SERUM 8.1 g/dL (6.4-8.2); TROPONIN-I < 0.017 ng/mL (0.000-0.060)
[2019-11-30] MEDS ORDERED: CATAPRES0.1 MG PO (17:48)
[2019-11-30 19:34] VITALS: BP 118/86
== END 2019-11-30 19:35 | disposition home or self-care (01) ==
LOC: D.ER 15:55
PROVIDERS: Emergency Medicine
DX: I10 Essential (primary) hypertension (principal); R07.9 Chest pain, unspecified

== ENCOUNTER → 2019-12-23 12:25 | Outpatient (CLI) | payer OTHER ==
[2019-11-30 16:17] VITALS: BMI 36.7
[~2019-12-23 12:25] MED LIST changes: +CATAPRES0.1 MG PO
== END | disposition home or self-care (01) ==
LOC: D.CT 12:25
PROVIDERS: ATTEND Family Medicine
DX: Z86.711 Personal history of pulmonary embolism (principal)